=== PATIENT | female | born 1970 | race Native Hawaiian/Other Pacific Islander ===

== ENCOUNTER 2016-09-26 00:13 | Emergency (ER) | payer OTHER ==
[~2016-09-26] VITALS: Ht 170.2 cm; Wt 104.3 kg
[~2016-09-26 00:13] MED LIST: AMIO200T14 PO; AMLO10TA PO; AMLO2.5T PO; ASA LO-DOSE81 MG OR; BENICAR40 MG PO; BIOTIN 5000 OR; BYSTOLIC5 MG PO; CALCIUM600 M2 OR; CALNA OR; CLARITIN RDT5 MG OR; COZAAR100 MG PO; DEMADEX20 MG PO; ELIQUIS5 MG OR; ESCITALOPRAM10 MG PO; FORTAMET1000 MG PO; GLUCOPHAGE1000 MG PO; HYDR12.54; HYDR25TA60 PO; JANUVIA100 MG OR; LEXAPRO10 MG OR; LISI10TA11 PO; MAGNESIUM250 M1 OR; PACERONE400 MG OR; PANT40TA PO; RANI150T78 PO; ROPI0.5T PO; SIMV20TA2; SIMV20TA2 PO; TOPAMAX100 MG OR; TOPAMAX25 MG OR; ZANTAC 75 PO; [UNRECOGNIZED DRUG - OTHER] OR; [UNRECOGNIZED DRUG - OTHER] OR
[2016-09-26 03:00] VITALS: BP 180/94; TEMP 98.9
== END 2016-09-26 03:01 | disposition home or self-care (01) ==
LOC: ED 00:13
DX: G43.809 Other migraine, not intractable, without status migrainosus (principal)
CPT/HCPCS: 96361; 96365; 96375; 96376; 99285; J1100; J1885; J2405; J3475; J3490

== ENCOUNTER 2016-10-21 13:07 | Outpatient (CLI) | payer OTHER ==
[2016-10-21 13:26] LABS: PLATELET COUNT 259 K/uL (152-353)
[2016-10-21 13:43] LABS: POTASSIUM 3.4 mmol/L (3.6-5.2); SODIUM 136 mmol/L (136-145)
== END 2016-10-21 22:06 | disposition home or self-care (01) ==
LOC: LABW 13:07
PROVIDERS: Internal Medicine Cardiovascular Disease
DX: Z79.899 Other long term (current) drug therapy (principal); R06.02 Shortness of breath; Z51.81 Encounter for therapeutic drug level monitoring
CPT/HCPCS: 36415; 80048; 80061; 80076; 83880; 85027

== ENCOUNTER 2016-11-30 14:09 | Outpatient (CLI) | payer OTHER | END 2016-11-30 19:32 | disposition home or self-care (01) | LOC: RESP 14:09 | DX: I48.1 Persistent atrial fibrillation (principal); R06.09 Other forms of dyspnea; E78.4 Other hyperlipidemia | CPT/HCPCS: 93306 ==

== ENCOUNTER 2016-12-30 15:15 | Outpatient (CLI) | payer OTHER ==
[2016-12-30 15:43] LABS: PLATELET COUNT 239 K/uL (152-353)
[2016-12-30 17:00] LABS: POTASSIUM 3.9 mmol/L (3.6-5.2); SODIUM 139 mmol/L (136-145)
== END 2016-12-30 20:21 | disposition home or self-care (01) ==
LOC: LAB 15:15
PROVIDERS: Nurse Practitioner Family
DX: I10 Essential (primary) hypertension (principal); E66.8 Other obesity; K21.9 Gastro-esophageal reflux disease without esophagitis; I25.10 Atherosclerotic heart disease of native coronary artery without angina pectoris; E78.4 Other hyperlipidemia; Z79.899 Other long term (current) drug therapy; Z51.81 Encounter for therapeutic drug level monitoring
CPT/HCPCS: 80053; 80061; 82306; 83036; 84436; 84443; 85027

== ENCOUNTER → 2017-01-03 16:22 | Outpatient (CLI) | payer OTHER | END | disposition home or self-care (01) | LOC: AMB 16:22 | DX: R06.02 Shortness of breath (principal) ==

== ENCOUNTER 2017-05-11 13:39 | Outpatient (CLI) | payer OTHER ==
[2017-05-11 14:02] LABS: PLATELET COUNT 238 K/uL (152-353)
[2017-05-11 14:25] LABS: POTASSIUM 3.4 mmol/L (3.6-5.2); SODIUM 135 mmol/L (136-145)
== END 2017-05-11 14:40 | disposition home or self-care (01) ==
LOC: LAB 13:39
PROVIDERS: Nurse Practitioner Family
DX: F41.8 Other specified anxiety disorders (principal); K21.9 Gastro-esophageal reflux disease without esophagitis; I10 Essential (primary) hypertension; E11.9 Type 2 diabetes mellitus without complications; E78.4 Other hyperlipidemia; I48.1 Persistent atrial fibrillation; Z79.899 Other long term (current) drug therapy; I25.10 Atherosclerotic heart disease of native coronary artery without angina pectoris; Z51.81 Encounter for therapeutic drug level monitoring
CPT/HCPCS: 80053; 80061; 82306; 82607; 83036; 84436; 84443; 85027

== ENCOUNTER 2017-10-20 08:51 | Outpatient (CLI) | payer OTHER | END 2017-10-20 19:20 | disposition home or self-care (01) | LOC: RAD 08:51 | DX: M25.531 Pain in right wrist (principal) ==

== ENCOUNTER 2018-02-19 15:12 | Emergency (ER) | payer OTHER ==
[~2018-02-19] VITALS: Ht 170.2 cm; Wt 102.1 kg
[2018-02-19 16:36] VITALS: BP 140/84; TEMP 98
== END 2018-02-19 16:49 | disposition home or self-care (01) ==
LOC: ED 15:12
DX: M54.2 Cervicalgia (principal); V59.40XA Driver of pick-up truck or van injured in collision with unspecified motor vehicles in traffic accident, initial encounter
CPT/HCPCS: 99282

== ENCOUNTER 2018-04-06 14:34 | Outpatient (CLI) | payer OTHER | END 2018-04-06 22:53 | disposition home or self-care (01) | LOC: CT 14:34 | DX: M54.2 Cervicalgia (principal) ==

== ENCOUNTER 2019-11-25 08:37 | Emergency (ER) | payer OTHER ==
[~2019-11-25] VITALS: Ht 170.2 cm; Wt 104.3 kg
[2019-11-25 09:07] LABS: PLATELET COUNT 254 K/uL (152-353)
[2019-11-25 09:13] LABS: POTASSIUM 3.3 mmol/L (3.6-5.2)
[2019-11-25 10:59] VITALS: BP 140/68; TEMP 97.6
== END 2019-11-25 10:59 | disposition home or self-care (01) ==
LOC: ED 08:37
PROVIDERS: Hospitalist
DX: E11.65 Type 2 diabetes mellitus with hyperglycemia (principal); Z79.84 Long term (current) use of oral hypoglycemic drugs
CPT/HCPCS: 36415; 80048; 81000; 81002; 81025; 82962; 85027; 96360; 96376; 99284; J1815

== ENCOUNTER 2020-01-03 07:47 | Observation (INO) | payer OTHER ==
[~2020-01-03] VITALS: Ht 170.2 cm; Wt 103.1 kg
[2020-01-03 07:59] VITALS: BP 198/92; TEMP 97.5
[2020-01-03 08:24] LABS: PLATELET COUNT 332 K/uL (152-353)
[2020-01-03 08:28] LABS: POTASSIUM 2.9 mmol/L (3.6-5.2)
[2020-01-03 08:34] LABS: PARTIAL THROMBOPLASTIN TIME 23.6 SECONDS (24.5-33.6)
[2020-01-03 09:30] VITALS: BP 181/94
[2020-01-03] MEDS ORDERED: GLIM4TAB PO (10:59)
[2020-01-03] MEDS ORDERED: ROPINIROLE2 M1 PO (11:03)
[2020-01-03] MEDS ORDERED: TRAMADOL HYDROC50 MG PO (11:04)
[2020-01-03] MEDS ORDERED: GABA300C2 PO (11:05)
[2020-01-03] MEDS ORDERED: DULOXETINE HYDR60 MG PO (11:11)
[2020-01-03] MEDS ORDERED: ATENOLOL100 M1 PO (11:13)
[2020-01-03] MEDS ORDERED: HYDROCHLOROT12.5 M1 PO ×2 (11:18→11:20)
[2020-01-03] MEDS ORDERED: LISI20TA11 PO ×2 (11:18→11:19)
[2020-01-03 12:04] VITALS: BP 205/95; TEMP 98.3; Ht 170.2 cm; Wt 103.1 kg
[2020-01-03 16:00] VITALS: BP 135/73; TEMP 98.3
[2020-01-03 20:00] VITALS: BP 137/75; TEMP 98.8
[2020-01-04] VITALS: BP 143/81; TEMP 98.9
[2020-01-04 03:47] VITALS: BP 132/77; TEMP 98.9
[2020-01-04 05:37] LABS: PLATELET COUNT 289 K/uL (152-353)
[2020-01-04 05:39] LABS: POTASSIUM 3.7 mmol/L (3.6-5.2)
[2020-01-04 08:00] VITALS: BP 126/66; BP 149/77; TEMP 97
[2020-01-04 12:00] VITALS: BP 129/67; TEMP 97.3
[2020-01-04] MEDS ORDERED: NITR0.4S SL (12:04)
[2020-01-04] MEDS ORDERED: K-TAB20 MEQ PO (12:07)
== END 2020-01-04 14:45 | disposition home or self-care (01) ==
LOC: ED 07:47 → MED/SURG 09:00 → UNDODEPER 01-04 14:57
PROVIDERS: Hospitalist; Internal Medicine; ADMIT Family Medicine
DX: R07.89 Other chest pain (principal); I48.91 Unspecified atrial fibrillation; I10 Essential (primary) hypertension; E87.6 Hypokalemia; E11.42 Type 2 diabetes mellitus with diabetic polyneuropathy; K21.9 Gastro-esophageal reflux disease without esophagitis; G25.81 Restless legs syndrome
CPT/HCPCS: 36415; 80048; 80053; 82550; 82948; 84484; 85027; 85610; 85730; 93005; 93306; 99220; 99284; G0378; J1650

== ENCOUNTER 2020-06-16 12:46 | Outpatient (CLI) | payer OTHER ==
[~2020-06-16 12:46] MED LIST changes: +ATENOLOL100 M1 PO; +DULOXETINE HYDR60 MG PO; +GABA300C2 PO; +GLIM4TAB PO; +HYDROCHLOROT12.5 M1 PO; +K-TAB20 MEQ PO; +LISI20TA11 PO; +NITR0.4S SL; +ROPINIROLE2 M1 PO; +TRAMADOL HYDROC50 MG PO
== END 2020-06-16 23:35 | disposition home or self-care (01) ==
LOC: US 12:46
DX: R60.0 Localized edema (principal)

== ENCOUNTER 2021-01-03 11:07 | Emergency (ER) | payer OTHER ==
[~2021-01-03] VITALS: Ht 170.2 cm; Wt 104.3 kg
[2021-01-03 11:10] VITALS: TEMP 98
[2021-01-03 11:27] LABS: PLATELET COUNT 230 K/uL (152-353)
[2021-01-03 11:36] LABS: POTASSIUM 3.4 mmol/L (3.6-5.2)
[2021-01-03 11:52] LABS: PARTIAL THROMBOPLASTIN TIME 22.3 SECONDS (24.5-33.6)
[2021-01-03 13:06] VITALS: BP 134/73
== END 2021-01-03 13:06 | disposition home or self-care (01) ==
LOC: ED 11:07
PROVIDERS: Hospitalist
DX: I16.0 Hypertensive urgency (principal)
CPT/HCPCS: 80053; 82550; 83880; 84484; 85027; 85610; 85730; 93005; 96374; 96375; 99284; J0360; J2405

== ENCOUNTER 2021-02-25 00:12 | Outpatient (CLI) | payer OTHER | END 2021-02-25 18:57 | disposition home or self-care (01) | LOC: RAD 00:12 | PROVIDERS: ATTEND Nurse Practitioner Family | DX: M25.512 Pain in left shoulder (principal) ==

== ENCOUNTER 2021-05-01 00:36 | Outpatient (CLI) | payer OTHER | END 2021-05-01 23:03 | disposition home or self-care (01) | LOC: RAD 00:36 | PROVIDERS: ATTEND Nurse Practitioner | DX: M79.675 Pain in left toe(s) (principal) ==

== ENCOUNTER 2022-01-13 13:32 | Outpatient (CLI) | payer OTHER | END 2022-01-13 19:21 | disposition home or self-care (01) | LOC: MRI 13:32 | PROVIDERS: ATTEND Nurse Practitioner | DX: M54.16 Radiculopathy, lumbar region (principal) ==